=== PATIENT | female | born 2000 | race Caucasian/White ===

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

== ENCOUNTER → 2022-07-23 | Day surgery (SDC) | payer BC ==
[~2022-07-23] MED LIST changes: +CULTURELLE1 EACH; +DEXAMETHASONE SOD PHOS INJ 4 MG/ML SDV ONE; -GLUCAGON FOR INJ 1 MG VIAL ONE; +LIDOCAINE HCL 2% LOCAL INJ 5 ML SDV VIAL INJ ONE; -MIDAZOLAM HCL 2 MG/2 ML VIAL ONE; +ONDANSETRON HCL INJ 2MG/ML 2ML 2 MG/ML VIAL ONE; +POVIDONE IODINE 0.05% 0.05 % ML PO ONE; +PROPOFOL IV EMULSION 10 MG/ML 50 ML VIAL IV ONE; +[UNRECOGNIZED DRUG - CODE]
[2022-07-23 16:25] VITALS: BP 98/55
[2022-07-27 06:12] LABS: ENDOMYSIAL ANTIBODIES, IGA Negative (Negative)
== END | disposition home or self-care (01) ==
LOC: OR 12:08
PROVIDERS: ATTEND Internal Medicine Gastroenterology
DX: K29.70 Gastritis, unspecified, without bleeding (principal); K63.5 Polyp of colon; K52.9 Noninfective gastroenteritis and colitis, unspecified; K20.90 Esophagitis, unspecified without bleeding; Z71.3 Dietary counseling and surveillance; G93.49 Other encephalopathy; F32.A Depression, unspecified; Z01.812 Encounter for preprocedural laboratory examination; Z79.899 Other long term (current) drug therapy
CPT/HCPCS: 36415; 43239; 45380; 45385; 81025; 82784; 83516; 83630; 83993; 84702; 86140; 86256; 87045; 87177; 87324; 87328; 87449; C9113; J1100; J2001; J2405; J2704 ×2; J2765; J3010; 45378